=== PATIENT | male | born 1945 | race Caucasian/White ===

== ENCOUNTER → 2017-12-23 | Day surgery (SDC) | payer MEDICARE, OTHER ==
[~2017-12-23] MED LIST: BELLADONNA/OPIUM 60 MG SUPP PR ONE; CEFAZOLIN SOD 2 GM/D5W 50ML 50 ML IV ONE; CO Q-1010 MG PO; DEXAMETHASONE SOD PHOS INJ 4 MG/ML VIAL ONE; FENTANYL CITRATE/PF 100MCG/2 ML INJ ONE; GENTAMICIN 80MG/NS 100 ML 200 ML IV ONE; GLUCOSAMINE &1 EAC1 PO; IOPAMIDOL 610MG/1ML 300 MG/ML VIAL IV ONE; LIDOCAINE HCL 2% LOCAL INJ 5 ML SDV VIAL INJ ONE; MAGNESIUM500 MG PO; MELATONIN3 MG PO; MULTI-VITAMIN1 EACH PO; OMEGA 3 FISH O1 EACH PO; ONDANSETRON HCL INJ 2 MG/ML VIAL ONE; PROPOFOL IV EMULSION 10 MG/ML 20 ML VIAL ONE; QUESTRAN PACKET4 GM PO; SEVOFLURANE INHAL SOLN 250 ML PEN BTL ONE; TAMSULOSIN HCL0.4 MG PO; TUMERIC PO; VITAMIN C100 MG PO; VITAMIN D31000 UNIT PO
--- NOTE | 2017-12-23 13:59 | Operative Report ---
DATE OF PROCEDURE: December 23, 2017 MORTGAGE ACCOUNTING CLERK: None. SERVICE: Urology. PREOPERATIVE DIAGNOSES 1. Elevated PSA. 2. Microhematuria. 3. Frequent voiding and nocturia. POSTOPERATIVE DIAGNOSES 1. Elevated PSA. 2. Microhematuria. 3. Frequent voiding and nocturia. 4. 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 PROCEDURES 1. Cystourethroscopy and removal of bladder tumor. 2. Fulguration of the base of the tumor. 3. Ultrasound of the prostate. 4. Ultrasound-guided needle biopsy of the prostate, 12 cores, 6 from each side, 2 base, 2 center, and 2 apex. CLINICAL INDICATION NOTE: This is a 72-year-old patient with significant voiding symptoms as well as history of microhematuria. Patient has nocturia, frequency, hesitancy, and low stream. The patient had an elevated PSA and was brought for a cystoscopy and ultrasound of the prostate and ultrasound-guided biopsy. Procedure was discussed with the patient. He is aware about potential complications including bleeding and infection. DESCRIPTION OF PROCEDURE AND FINDINGS: After proper anesthesia was achieved, the patient was placed in lithotomy position, prepped and draped in sterile fashion. Urethra inspected was unremarkable, but was significantly obstructed by enlarged prostate which was composed of large medial lobe and 2 lateral lobes. The bladder itself was significantly trabeculated with small blood vesicles and diverticula. On the right side, just near the trigone, a small papillary lesion quite suspicious for a transitional tumor was seen. It was removed and the base of it and all the area around was carefully coagulated with a Bugbee electrode. At this point, the bladder was filled up with irrigation fluid and the scope was removed. Ultrasound probe was then inserted and the prostate was assessed. No definite lesions were identified. Prostate was large about 67 cubic centimeters. Following this, 12 cores of prostatic tissue were obtained, 6 on each side, 2 base, 2 center, and 2 apex. The patient did not bleed significantly after the biopsy. Of note, the rectum was irrigated with diluted Betadine solution before the procedure. Patient was transferred in satisfactory condition to recovery room. He will be followed as outpatient. Instruction before the biopsy that were given included that should there be any fever, chills, or gross bleeding per rectum or in the urine to call us and to come to the ER. Job#: [id number] VAS
== END | disposition home or self-care (01) ==
LOC: OR 08:20
PROVIDERS: ATTEND Urology
DX: R97.20 Elevated prostate specific antigen [PSA] (principal); C67.9 Malignant neoplasm of bladder, unspecified; N41.0 Acute prostatitis; N41.1 Chronic prostatitis; N32.89 Other specified disorders of bladder; N40.1 Benign prostatic hyperplasia with lower urinary tract symptoms; R35.1 Nocturia; N13.8 Other obstructive and reflux uropathy; R00.1 Bradycardia, unspecified; I44.0 Atrioventricular block, first degree; Z01.810 Encounter for preprocedural cardiovascular examination
CPT/HCPCS: 52234; 55700; 76000; 76872; 76942; 88305; 93005; J1100; J1580; J2001; J2405; Q9967

== ENCOUNTER 2018-10-18 06:23 | Inpatient (IN) | payer MEDICARE, OTHER ==
[2018-10-14 10:53] LABS: BASOPHILS % 0.5 % (0.0-1.0); EOSINOPHILS # (AUTO) 0.1 (0.0-0.4); EOSINOPHILS % 1.6 % (0.0-6.0); HEMATOCRIT 47.3 % (38.2-49.6); HEMOGLOBIN 16.2 g/dL (14.0-18.0); LYMPHOCYTES # (AUTO) 2.1 (1.0-3.2); LYMPHOCYTES % 37.1 % (18.0-39.1); MEAN CORPUSCULAR HEMOGLOBIN 31.6 pg (28-32); MEAN CORPUSCULAR HGB CONC 34.2 g/dL (31-35); MEAN CORPUSCULAR VOLUME 92.2 fL (81-99); MONOCYTES # (AUTO) 0.6 (0.2-0.8); NEUTROPHILS # (AUTO) 2.9 (2.1-6.9); NEUTROPHILS % 50.6 % (38.7-80.0); PLATELET COUNT 203 x10e3/uL (140-360); RED BLOOD COUNT 5.13 x10e6/uL (4.3-5.7); RED CELL DISTRIBUTION WIDTH 12.7 % (11.7-14.4)
[~2018-10-18] VITALS: Ht 182.9 cm; Wt 91.6 kg
[~2018-10-18 06:23] MED LIST changes: -BELLADONNA/OPIUM 60 MG SUPP PR ONE; -CEFAZOLIN SOD 2 GM/D5W 50ML 50 ML IV ONE; -DEXAMETHASONE SOD PHOS INJ 4 MG/ML VIAL ONE; -FENTANYL CITRATE/PF 100MCG/2 ML INJ ONE; +FINASTERIDE5 MG PO; -GENTAMICIN 80MG/NS 100 ML 200 ML IV ONE; -IOPAMIDOL 610MG/1ML 300 MG/ML VIAL IV ONE; -LIDOCAINE HCL 2% LOCAL INJ 5 ML SDV VIAL INJ ONE; -ONDANSETRON HCL INJ 2 MG/ML VIAL ONE; -PROPOFOL IV EMULSION 10 MG/ML 20 ML VIAL ONE; -SEVOFLURANE INHAL SOLN 250 ML PEN BTL ONE
[2018-10-18] MEDS ORDERED: CEFAZOLIN SOD 1 GM/D5W 50ML 50 ML IV ONE (07:20)
--- NOTE | 2018-10-18 07:25 | NUR ---
SPIRITUAL CARE - Pre-Surgery Assessment: Pt in bed. Pt's at bedside. Pt reported supportive attention from family and friends. Intervention: I provided pastoral presence, hospitality, and sympathetic listening. I acquainted pt with availability of cork tile floor layer while hospitalized. Outcome: Pt expressed appreciation for visit. No need for follow up indicated at this time. [facility] Spiritual Care Department O: [phone] Pager: [phone] ([phone] number calling from)
--- NOTE | 2018-10-18 07:48 | Diagnostic Imaging Report ---
PROCEDURE: X-RAY CHEST, TWO VIEWS COMPARISON: None. INDICATIONS: PREOPERATIVE CHEST XRAY FOR PROSTATE SURGERY FINDINGS: The lungs are well-inflated. No focal consolidation, pleural effusion, or pneumothorax. Cardiomediastinal contour and pulmonary vasculature are notable for tortuosity of the thoracic aorta and a levoscoliotic curvature of the thoracic spine. No overt pulmonary edema. Radiodensity projecting over the posterior left seventh rib may represent a bone island or superimposition of an overlying vascular structure. No acute osseous abnormality. CONCLUSION: No acute cardiopulmonary abnormality. Dictated by: Dejan Young M.D. on 10/18/2018 at 7:58 Electronically approved by: Dejan Young M.D. on 10/18/2018 at 7:58
[2018-10-18] MEDS ORDERED: IOPAMIDOL 610MG/1ML 300 MG/ML VIAL IV ONE (08:37)
[2018-10-18] MEDS ORDERED: BELLADONNA/OPIUM 60 MG SUPP PR ONE (09:16)
[2018-10-18] MEDS ORDERED: KETOROLAC TROMETHAMINE 30 MG/ML VIAL ONE (10:19)
[2018-10-18] MEDS ORDERED: FENTANYL CITRATE/PF 100MCG/2 ML INJ ONE ×2 (10:29→15:32)
--- NOTE | 2018-10-18 12:31 | Operative Report ---
DATE OF PROCEDURE: October 18, 2018 SERVICE: Urology. PREOPERATIVE DIAGNOSES 1. BPH with obstruction. 2. History of transitional-cell carcinoma of the bladder. 3. Microhematuria. 4. Elevated prostate-specific antigen. 5. Bladder diverticulum. POSTOPERATIVE DIAGNOSES 1. BPH with obstruction. 2. History of transitional-cell carcinoma of the bladder. 3. Microhematuria. 4. Elevated prostate-specific antigen. 5. Bladder diverticulum. OPERATION PERFORMED 1. Cystoscopy and bilateral retrograde pyelograms under fluoroscopic control. 2. Interpretation of x-ray, radiologist not present. 3. Supervision of fluoroscopy. Radiologist not present. 4. A transurethral treatment of the prostate with plasma ablation. STREET LIGHT SERVICER HELPER: None. ANESTHESIA: General. CLINICAL INDICATION NOTE: This is a 73-year-old patient that has significant voiding symptoms. Patient was brought for treatment of the prostate. He has also history of TCC of the bladder and microhematuria. Previous PSA was minimally elevated. Free PSA was high. Patient is planned to have at least a cysto as well as treatment of the prostate with a plasma. DESCRIPTION OF PROCEDURE AND FINDINGS: After the proper level of anesthesia was achieved, the patient was placed in lithotomy position, prepped and draped in the usual sterile fashion. Bilateral retrograde pyelograms were done under fluoroscopic control. The right ureteral orifice was identified easily. The left was obscured by a lobe of the prostate which is growing toward the left side of the bladder. The bladder has also bladder diverticulum. No tumor or foreign bodies identified in the bladder. Bilateral retrograde pyelograms were done under fluoroscopic control. No intrinsic lesions were identified. There was J-hooking of both distal ureters as expected from the enlarged prostate. Following this, the bladder was filled up with irrigation fluid. The scope was removed. Resectoscope was inserted. The plasma instrument was used to remove the prostate tissue. The median lobe was treated first and the lobe bulging into the left side of the bladder. Following this, the lateral lobes were treated. Care was taken not to go distal to the verumontanum. Coagulation was used for any visible bleeding point. After the procedure, the bladder was irrigated to clear. The bladder was filled up with irrigation fluid and Crede maneuver demonstrated good flow. A 22-Sinhala, 3-way, 30-mL Varma catheter was inserted to the bladder and connected to continuous irrigation with normal saline. Patient tolerated the procedure well and was transferred in satisfactory condition to recovery room. Postop orders were given. Job#: [id number]
--- OUTSIDE RECORDS SUMMARY | 2018-10-18 12:35 | XMS REPORT ---
Author [facility] Address Unknown Phone Unavailable Care Team Providers Care Round Up Ring Hand Name Role Phone LOIDA MALDONADO Unavailable Unavailable Problems This patient has no known problems. Allergies, Adverse Reactions, Alerts This patient has no known allergies or adverse reactions. Medications This patient has no known medications. Results Test Description Test Time Test Comments Text Results Atomic Results Result Comments CHEST 2 VIEWS 2018-10-18 07:58:00 [place] [address] Patient Name: RUPAL AYALA MR #: [id number] : 1945 Age/Sex: 73/M Req #: [id number] Adm Physician: Ordered by: LOIDA MALDONADO MD Report #: [id number] Location: OR Room/Bed: Procedure: [id number] DX/CHEST 2 VIEWS Exam Date: 10/18/18 Exam Time: 727 REPORT STATUS: Signed PROCEDURE: X-RAY CHEST, TWO VIEWS COMPARISON: None. GAVI CATIONS: PREOPERATIVE CHEST XRAY FOR PROSTATE SURGERY FINDINGS: The lungs are well-inflated. No focal consolidation, pleural effusion, or pneumothorax. Cardiomediastinal contour and pulmonary vasculature are notable for tortuosity of the thoracic aorta and a levoscoliotic curvature of the thoracic spine. No overt pulmonary edema. Radiodensity projecting over the posterior left seventh rib may represent a bone island or superimposition of an overlying vascular structure. No acute osseous abnormality. CONCLUSION: No acute cardiopulmonary abnormality. Dictated by: aSrai Escobar M.D. on 10/18/2018 at 7:58 Electronically approved by: Sarai Escobar M.D. on 10/18/2018 at 7:58 Dictated By: SARAI ESCOBAR MD 7 Transcribed By: RADHA on 10/18/18757 COPY TO: LOIDA MALDONADO MD
[2018-10-18] MEDS ORDERED: EPHEDRINE SULFATE INJ 50 MG/10 ML SYR ONE (13:49)
[2018-10-18] MEDS ORDERED: PROPOFOL IV EMULSION 10 MG/ML 20 ML VIAL ONE (13:49)
[2018-10-18] MEDS ORDERED: LIDOCAINE HCL 2% LOCAL INJ 5 ML SDV VIAL INJ ONE (13:49)
[2018-10-18 13:54] VITALS: BP 151/75
[2018-10-18 14:00] VITALS: BP 151/75
--- NOTE | 2018-10-18 14:10 | NUR ---
recvd pt, alert and oriented. no c/o pain or discomfort at this time. pt has continuous irrigation in place, hematuria. will continue to monitor
[2018-10-18] MEDS ORDERED: CEFAZOLIN SOD 2 GM/D5W 50ML 50 ML IV SCH (15:00)
[2018-10-18 15:41] VITALS: BP 110/67
--- NOTE | 2018-10-18 16:52 | NUR ---
notfied MD patient having multiple clotting but unable to reduce with manual irrigation. per MD need to change to travis cath. house sup placed on phone to be aware and arrange. pending cath change, will continue to monitor
[2018-10-18] MEDS ORDERED: CEFAZOLIN SOD 2 GM in WATER STERILE 10ML VIAL 10 ML IV SCH (17:00)
[2018-10-18] MEDS: ACETAMINOPHEN/CODEINE 300MG - 30MG TAB PO PRN (17:43)
[2018-10-18] MEDS ORDERED: MORPHINE SULFATE 2 MG/ML SYR IV NR (18:38)
--- NOTE | 2018-10-18 19:00 | NUR ---
Dr Portia Meza on unit, replaced cath with rouch 24. irrigated bladder. new catheter in place and patent.
[2018-10-18 20:12] VITALS: BP 102/62
[2018-10-18] MEDS: CEFAZOLIN SOD 2 GM/D5W 50ML 50 ML IV SCH ×2 (20:39→21:02)
[2018-10-18] MEDS ORDERED: SODIUM CHLORIDE 0.9% 250ML 250 ML ONE (20:42)
[2018-10-19] VITALS (8 sets, daily range): BP systolic 104–140; BP diastolic 65–80
[2018-10-19 05:06] LABS: BASOPHILS % 0.2 % (0.0-1.0); EOSINOPHILS # (AUTO) 0.1 (0.0-0.4); EOSINOPHILS % 0.6 % (0.0-6.0); HEMATOCRIT 38.1 % (38.2-49.6); LYMPHOCYTES # (AUTO) 2.3 (1.0-3.2); LYMPHOCYTES % 21.3 % (18.0-39.1); MEAN CORPUSCULAR HEMOGLOBIN 31.8 pg (28-32); MEAN CORPUSCULAR HGB CONC 34.1 g/dL (31-35); MEAN CORPUSCULAR VOLUME 93.2 fL (81-99); MONOCYTES % 9.5 % (4.4-11.3); NEUTROPHILS # (AUTO) 7.3 (2.1-6.9); PLATELET COUNT 192 x10e3/uL (140-360); RED BLOOD COUNT 4.09 x10e6/uL (4.3-5.7); RED CELL DISTRIBUTION WIDTH 12.8 % (11.7-14.4)
[2018-10-19 05:23] LABS: ANION GAP 12.5 mmol/L (8-16); BLOOD UREA NITROGEN 22 mg/dL (7-26); BUN/CREATININE RATIO 21 (6-25); CALCIUM 8.5 mg/dL (8.4-10.2); CARBON DIOXIDE 24 mmol/L (22-29); CHLORIDE 101 mmol/L (98-107); CREATININE, SERUM 1.06 mg/dL (0.72-1.25); EST GLOMERULAR FILTRATION RATE > 60 ML/MIN (60-); GLUCOSE 107 mg/dL (74-118); POTASSIUM 4.5 mmol/L (3.5-5.1); SODIUM 133 mmol/L (136-145)
[2018-10-19] MEDS: CEFAZOLIN SOD 2 GM/D5W 50ML 50 ML IV SCH ×2 (05:23→05:41)
--- NOTE | 2018-10-19 07:47 | NUR ---
pt resting in bed, irrigated bladder. patent with hematuria. cont irrigation still in place. will continue to monitor.
--- NOTE | 2018-10-19 10:27 | NUR ---
CASE MANAGEMENT INITIAL ASSESSMENT [employer] Spotter to bedside to discuss plan of care with patient/family. CM/SW role and care transitions discussed. Anticipated discharge plan discussed along with duration of care. CM/SW discussed patients right to make decisions in care. CM/SW work hours given. Patient lives: IN OWN HOME WITH Admit/Transfer: VIA ED FROM HOME POA/Emergency contact: ROS [phone] Current/Previous Home Health: NONE PCP/Follow-up Care: [facility]RA Current/Previous DME: NONE Other Services: NONE Employment Status: RETIRED Areas of Concerns: NONE Referral Needs: NONE Education Needs: NONE IMM/MARES given and signed (if applicable): MARES Goal for discharge: RETURN HOME INDEPENDENTLY WITH NO NEEDS CM/SW left business card at the bedside with contact information. Name and number was also written on the patients whiteboard. Patient verbalized understanding of discussion. CM will follow-up with ongoing discharge and transition of care needs.
[2018-10-19] MEDS ORDERED: CEFAZOLIN SOD 2 GM/D5W 50ML 50 ML IV SCH (10:30)
[2018-10-19] MEDS: ACETAMINOPHEN/CODEINE 300MG - 30MG TAB PO PRN (10:41)
--- NOTE | 2018-10-19 10:41 | NUR ---
fc running clearer now, irrigation done
[2018-10-19] MEDS ORDERED: MORPHINE SULFATE INJ 4 MG/ML INJ IV SCH (12:15)
--- NOTE | 2018-10-19 19:11 | NUR ---
pt continued hematuria, continues to be blood tinged, recent check noticed bloody sediment at cath bag/catheter joint site. report given regarding manual flush and continuous irrigation current rate. pt reports no pain at this time.
[2018-10-20] VITALS (7 sets, daily range): BP systolic 104–128; BP diastolic 62–73
--- NOTE | 2018-10-20 03:17 | NUR ---
walking rounds performed on patient. patient is resting comfortably in the bed. no complaints of pain or discomfort noted. will continue to monitor patient.
[2018-10-20] MEDS ORDERED: BISACODYL 10 MG SUPP PR NR (07:30)
[2018-10-20] MEDS ORDERED: BISACODYL 10 MG SUPP PR PRN (07:30)
[2018-10-20] MEDS: FINASTERIDE 5 MG TAB PO SCH (08:11)
[2018-10-20] MEDS: TAMSULOSIN HCL 0.4 MG CAP PO SCH (08:11)
[2018-10-20] MEDS: DOCUSATE SODIUM 100 MG CAP PO SCH ×2 (08:11→16:09)
--- NOTE | 2018-10-20 18:56 | NUR ---
Report given to Terrell Morris RN
[2018-10-21] VITALS (8 sets, daily range): BP systolic 109–134; BP diastolic 57–70
[2018-10-21 04:57] LABS: BASOPHILS % 0.3 % (0.0-1.0); EOSINOPHILS # (AUTO) 0.1 (0.0-0.4); EOSINOPHILS % 1.4 % (0.0-6.0); HEMATOCRIT 33.1 % (38.2-49.6); HEMOGLOBIN 11.3 g/dL (14.0-18.0); LYMPHOCYTES # (AUTO) 2.1 (1.0-3.2); LYMPHOCYTES % 23.6 % (18.0-39.1); MEAN CORPUSCULAR HEMOGLOBIN 31.7 pg (28-32); MEAN CORPUSCULAR HGB CONC 34.1 g/dL (31-35); MEAN CORPUSCULAR VOLUME 92.7 fL (81-99); MONOCYTES # (AUTO) 1.1 (0.2-0.8); MONOCYTES % 12.2 % (4.4-11.3); NEUTROPHILS # (AUTO) 5.5 (2.1-6.9); NEUTROPHILS % 62.3 % (38.7-80.0); PLATELET COUNT 166 x10e3/uL (140-360); RED BLOOD COUNT 3.57 x10e6/uL (4.3-5.7); RED CELL DISTRIBUTION WIDTH 12.3 % (11.7-14.4)
[2018-10-21 05:16] LABS: ANION GAP 11.4 mmol/L (8-16); BLOOD UREA NITROGEN 16 mg/dL (7-26); BUN/CREATININE RATIO 15 (6-25); CALCIUM 8.9 mg/dL (8.4-10.2); CARBON DIOXIDE 28 mmol/L (22-29); CHLORIDE 101 mmol/L (98-107); CREATININE, SERUM 1.08 mg/dL (0.72-1.25); EST GLOMERULAR FILTRATION RATE > 60 ML/MIN (60-); GLUCOSE 103 mg/dL (74-118); POTASSIUM 4.4 mmol/L (3.5-5.1); SODIUM 136 mmol/L (136-145)
--- NOTE | 2018-10-21 06:25 | NUR ---
patient states tylenol 650mg is not effective. patient wants dose to be increased to 1000mg. paged awaiting call back. will continue to monitor patients pain.
--- NOTE | 2018-10-21 07:00 | NUR ---
Walking rounds done. Report received from night nurse. Patient is awake and alertx3 in NAD. CBI infusing to 3-way Varma cath with light pink urine in drainage bag. POC discussed. Bed in lowest position, locked and call martinez within reach. Patient instructed to call for assistance as needed and verbalized understanding.
[2018-10-21] MEDS: TAMSULOSIN HCL 0.4 MG CAP PO SCH (08:24)
[2018-10-21] MEDS: FINASTERIDE 5 MG TAB PO SCH (08:24)
[2018-10-21] MEDS: DOCUSATE SODIUM 100 MG CAP PO SCH ×2 (08:24→16:35)
--- NOTE | 2018-10-21 20:40 | NUR ---
GALLAGHER CATHETER MANUALLY IRRIGATED, LOTS OF CLOTS REMOVED. PATIENT VOICED RELIEF AFTER IRRIGATING THE CATHETER. HE DENIES PAIN, CALL LIGHT IN EASY REACH, INSTRUCTED TO CALL FOR ASSISTANCE NEEDED.
[2018-10-21] MEDS: ACETAMINOPHEN/CODEINE 300MG - 30MG TAB PO PRN (23:06)
--- NOTE | 2018-10-21 23:06 | NUR ---
PATIENT C/O PAIN TO THE PENIS WITH PAIN SCORE #3, MEDICATED WITH TYLENOL # ORDERED. CALL LIGHT IN EASY REACH, INSTRUCTED TO CALL FOR ASSISTANCE NEEDED.
[2018-10-22] VITALS (7 sets, daily range): BP systolic 108–144; BP diastolic 52–76
--- NOTE | 2018-10-22 03:15 | NUR ---
PATIENT IS SOUNDLY ASLEEP, HE'S EASY TO AROUSE. CONTINUOUS BLADDER IRRIGATION INFUSING, NO CLOTS NOTED IN THE COLLECTING TUBE.
[2018-10-22] MEDS: FINASTERIDE 5 MG TAB PO SCH (09:20)
[2018-10-22] MEDS: DOCUSATE SODIUM 100 MG CAP PO SCH ×2 (09:20→16:53)
[2018-10-22] MEDS: TAMSULOSIN HCL 0.4 MG CAP PO SCH (09:20)
--- NOTE | 2018-10-22 17:05 | NUR ---
patient alert and oriented, report given to Frank, patient transferred to room 108 with all belongings in stable condition.
--- NOTE | 2018-10-22 17:15 | NUR ---
Received patient from observation unit at this time. CBI in place. Urine is pale pink, flowing by gravity. Patient is in no pain or distress. Call martinez within reach. Bed is low and locked.
[2018-10-23] VITALS (7 sets, daily range): BP systolic 112–134; BP diastolic 58–73
--- NOTE | 2018-10-23 07:07 | NUR ---
REPORT GIVEN TO ONCOMING NURSE,WALKING ROUNDS MADE.
[2018-10-23] MEDS: FINASTERIDE 5 MG TAB PO SCH (08:41)
[2018-10-23] MEDS: DOCUSATE SODIUM 100 MG CAP PO SCH ×2 (08:41→18:06)
[2018-10-23] MEDS: TAMSULOSIN HCL 0.4 MG CAP PO SCH (08:41)
[2018-10-23] MEDS: ACETAMINOPHEN/CODEINE 300MG - 30MG TAB PO PRN (16:15)
[2018-10-24 01:48] VITALS: BP 133/59
[2018-10-24 05:21] VITALS: BP 132/59
[2018-10-24] MEDS ORDERED: TYLENOL WITH C1 EACH PO (07:39)
[2018-10-24] MEDS ORDERED: LEVAQUIN500 MG PO (07:40)
--- NOTE | 2018-10-24 08:00 | NUR ---
md tristan rounded. md cartwright discharge
[2018-10-24] MEDS: FINASTERIDE 5 MG TAB PO SCH (08:15)
[2018-10-24] MEDS: TAMSULOSIN HCL 0.4 MG CAP PO SCH (08:15)
[2018-10-24] MEDS: DOCUSATE SODIUM 100 MG CAP PO SCH (08:15)
--- NOTE | 2018-10-24 08:25 | NUR ---
discharge instructions given and prescriptions. pt verbalized understanding. iv dc pressure dressing applied and tapped. pt is now off unit via wheel chair to home
--- NOTE | 2018-10-24 08:34 | Discharge Summary ---
PRIMARY CARE PHYSICIAN: Dr. Mendez Simmons ONLINE MARKETING SPECIALIST: Dr. Meza FINAL DIAGNOSES 1. Status post transurethral resection of prostate. 2. Gross hematuria with clots, required continuous urinary bladder irrigation. 3. Urinary retention. 4. Pelvic pain, improved. 5. Acute blood loss anemia, but not enough for any blood transfusion. SUMMARY: A 73-year-old male status post TURP. Patient had gross hematuria. His hemoglobin dropped, but not enough to do any transfusion. Patient did have a significant amount of clotting, which required continuous urinary bladder irrigation. The patient was having severe pain with clots and obstructive symptoms with urinary Varma catheter. The patient was more comfortable and stable. He did well. He had a washout . He did have some spasms and irrigation, and had some pain control. He is doing much better now. He is stable. The patient will go home today. Discharge home. The patient improved with pain medications and antibiotics. The patient will get Tylenol No. 3 and Levaquin. Prescription will be written by Dr. Meza. The patient was stable and discharged home. Follow up with Dr. Meza per his instructions. The patient will be administered medication. Job#: [id number] FAUSTO
== END 2018-10-24 08:25 | disposition home or self-care (01) | DRG 666 ==
LOC: OR 06:23 → PACU V 12:04 → IMCU 13:46 → OBSVTOIN 10-19 12:02 → MED/SURG 10-22 17:04
PROVIDERS: ADMIT Internal Medicine; ATTEND Internal Medicine
PROC: 0VT08ZZ Resection of Prostate, Via Natural or Artificial Opening Endoscopic (ICD-10-PCS; principal; 2018-10-18 08:30)
PROC: BT141ZZ Fluoroscopy of Kidneys, Ureters and Bladder using Low Osmolar Contrast (ICD-10-PCS; 2018-10-18 08:30)
DX: R31.0 Gross hematuria (principal); D62 Acute posthemorrhagic anemia; N40.1 Benign prostatic hyperplasia with lower urinary tract symptoms; N13.8 Other obstructive and reflux uropathy; N32.3 Diverticulum of bladder; R33.8 Other retention of urine; N32.89 Other specified disorders of bladder; G89.18 Other acute postprocedural pain; Z85.51 Personal history of malignant neoplasm of bladder
CPT/HCPCS: 36415; 71046; 74420; 80048; 85025; 93005; G0378; J0690; J1885; J2001; J2270; J7050